=== PATIENT | male | born 1985 | race Caucasian/White ===

== ENCOUNTER → 2017-10-14 | Outpatient (REF) | payer OTHER ==
[2017-10-14 14:17] LABS: #IMMOTILE SPERM COUNTED 11; SPERM ABNORMAL FORMS WBC'S NOTED
[2017-10-14 14:18] LABS: #MOTILE SPERM COUNTED 6; % MOTILITY 35 (> 40%); TOTAL # SPERM COUNTED 17 M/ml
== END ==
LOC: M LAB REF 13:24
PROVIDERS: ATTEND Student in an Organized Health Care Education/Training Program
DX: N46.8 Other male infertility (principal)

== ENCOUNTER → 2017-10-23 | Outpatient (REF) | payer OTHER ==
[2017-10-23 15:59] LABS: NON PROGRESSIVE MOTILITY (c) 5 %; PROGRESSIVE MOTILITY (a) 5 % (>=32); TOTAL MOTILITY 10 % (>=40)
[2017-10-23 16:00] LABS: IMMOTILITY 90 %; SPERM# 153.3 M/Ejac (>=39); TOTAL FUNCTIONAL 0.4 M/Ejac.; TOTAL PROGRESSIVE SPERM 7.6 M/Ejac.
== END ==
LOC: M LAB REF 15:44
PROVIDERS: ATTEND Physician Assistant
DX: Z31.41 Encounter for fertility testing (principal)